=== PATIENT | male | born 1940 | race Caucasian/White ===

== ENCOUNTER 2020-05-18 20:33 | Inpatient (IN) | payer OTHER, MEDICAID ==
[~2020-05-18] VITALS: Ht 167.6 cm; Wt 599.6 kg
[2020-05-18] MEDS ORDERED: CEFTRIAXONE 1 G PREMIX 50 ML IV ONE (21:15)
[2020-05-18] MEDS ORDERED: SODIUM CHLORIDE 0.9% 1000ML BAG (SEPSIS BOLUS) IV ONE (21:15)
[2020-05-18 21:43] LABS: HEMOGLOBIN. 12.9 g/dL (14.0-18.0); MEAN CORPUSCULAR HEMOGLOBIN 29.1 pg (28.0-32.0); MEAN CORPUSCULAR VOLUME 83.1 fL (80.0-94.0); MEAN PLATELET VOLUME 7.7 fl (7.4-10.4); PLATELET 228 x1000/uL (130-400); RED BLOOD CELL COUNT 4.45 mill/uL (4.7-6.1); RED CELL DISTRIBUTION WIDTH 14.6 % (11.6-14.6)
[2020-05-18 21:48] LABS: CHLORIDE 103 mEq/L (98-107)
[2020-05-18 21:50] LABS: INR 1.1; PROTHROMBIN TIME 11.9 sec (9.6-11.0)
[2020-05-18 22:07] LABS: PLATELET ESTIMATE NORMAL
[2020-05-19] MEDS ORDERED: AZITHROMYCIN 500 MG in DEXT 5% WATER 250 ML IV SCH (00:30)
[2020-05-19] MEDS ORDERED: VANCOMYCIN 1 G PREMIX 200 ML IV SCH (00:30)
[2020-05-19] MEDS ORDERED: SODIUM CHLORIDE 0.9% 1,000 ML IV NR (02:00)
[2020-05-19 02:19] LABS: CLARITY URINE CLEAR (CLEAR); COLOR URINE YELLOW (YELLOW); KETONES URINE TRACE (NEGATIVE); LEUKOCYTE ESTERASE URINE NEGATIVE (NEGATIVE); NITRITE URINE NEGATIVE (NEGATIVE); OCCULT BLOOD URINE NEGATIVE (NEGATIVE); PH URINE 6.5 (4.5-8.0); PROTEIN URINE NEGATIVE (NEGATIVE); SPECIFIC GRAVITY URINE 1.005 (1.005-1.030)
[2020-05-19 04:00] VITALS: BP 174/99
[2020-05-19] MEDS ORDERED: GUAIFENESIN 200MG/10ML SUGAR FREE UDC PO PRN (04:00)
[2020-05-19] MEDS ORDERED: ONDANSETRON HCL 4MG/2ML INJ IV PRN (04:00)
[2020-05-19] MEDS ORDERED: DOCUSATE SODIUM 100MG CAPSULE PO PRN (04:00)
[2020-05-19] MEDS ORDERED: ACETAMINOPHEN 325MG TABLET PO PRN (04:00)
[2020-05-19] MEDS ORDERED: DEXT 5%/0.45% NACL KCL 10MEQ/L 1,000 ML IV SCH (04:30)
[2020-05-19] MEDS: CLONIDINE 0.1MG TABLET PO PRN (05:36)
[2020-05-19 05:40] VITALS: BP 174/91
[2020-05-19 08:00] VITALS: BP 153/87
[2020-05-19] MEDS: DEXT 5%/0.45% NACL KCL 10MEQ/L 1,000 ML IV SCH ×2 (08:48→20:24)
[2020-05-19] MEDS: ENOXAPARIN 40MG/0.4ML SYR SUBCUT SCH (08:59)
[2020-05-19] MEDS: AZITHROMYCIN 500 MG in DEXT 5% WATER 250 ML IV SCH (08:59)
[2020-05-19] MEDS ORDERED: POTASSIUM CHLORIDE 20MEQ/PACKET PO NR (10:30)
[2020-05-19 12:00] VITALS: BP 127/85
[2020-05-19 16:00] VITALS: BP 132/62
[2020-05-19] MEDS ORDERED: ALBUTEROL 6.7GM HFA INHALER ORI PRN (19:15)
[2020-05-19 20:00] VITALS: BP 138/88
[2020-05-19] MEDS: GUAIFENESIN 600MG ER TABLET PO SCH (20:06)
[2020-05-19] MEDS: CEFTRIAXONE 1,000 MG in DEXTROSE 5% WATER 50 ML IV SCH (20:06)
[2020-05-19] MEDS ORDERED: CEFTRIAXONE 1 G PREMIX 50 ML IV SCH (21:00)
[2020-05-20] VITALS: BP 141/75
[2020-05-20 04:00] VITALS: BP 162/83
[2020-05-20] MEDS: CLONIDINE 0.1MG TABLET PO PRN ×2 (04:59→21:30)
[2020-05-20 06:36] LABS: CHLORIDE 107 mEq/L (98-107)
[2020-05-20 06:50] LABS: LDL CHOLESTEROL 33 mg/dL (5-100)
[2020-05-20 06:51] LABS: HDL CHOLESTEROL 35 mg/dL (40-59)
[2020-05-20 07:01] LABS: HEMATOCRIT. 36.3 % (42.0-52.0); HEMOGLOBIN. 12.6 g/dL (14.0-18.0); MEAN CORPUSCULAR HEMOGLOBIN 29.1 pg (28.0-32.0); MEAN CORPUSCULAR VOLUME 83.9 fL (80.0-94.0); MEAN PLATELET VOLUME 8.1 fl (7.4-10.4); PLATELET 157 x1000/uL (130-400); RED BLOOD CELL COUNT 4.33 mill/uL (4.7-6.1); RED CELL DISTRIBUTION WIDTH 14.7 % (11.6-14.6)
[2020-05-20 08:00] VITALS: BP 133/76
[2020-05-20] MEDS: AZITHROMYCIN 500 MG in DEXT 5% WATER 250 ML IV SCH (08:24)
[2020-05-20] MEDS: GUAIFENESIN 600MG ER TABLET PO SCH ×2 (08:26→21:30)
[2020-05-20] MEDS: ENOXAPARIN 40MG/0.4ML SYR SUBCUT SCH (08:26)
[2020-05-20] MEDS ORDERED: AZITHROMYCIN 500 MG in DEXT 5% WATER 250 ML IV SCH (09:00)
[2020-05-20 09:38] LABS: PLATELET ESTIMATE NORMAL
[2020-05-20] MEDS: DEXT 5%/0.45% NACL KCL 10MEQ/L 1,000 ML IV SCH (10:57)
[2020-05-20 12:00] VITALS: BP 142/72
[2020-05-20 16:00] VITALS: BP 133/66
[2020-05-20] MEDS: ENOXAPARIN 60MG/0.6ML SYR SUBCUT SCH (19:13)
[2020-05-20 20:00] VITALS: BP 176/80
[2020-05-20] MEDS: CEFTRIAXONE 1,000 MG in DEXTROSE 5% WATER 50 ML IV SCH (21:30)
[2020-05-21] VITALS: BP 131/62
[2020-05-21] MEDS: DEXT 5%/0.45% NACL KCL 10MEQ/L 1,000 ML IV SCH (00:09)
[2020-05-21 04:00] VITALS: BP 114/51
[2020-05-21] MEDS: ENOXAPARIN 60MG/0.6ML SYR SUBCUT SCH (05:44)
[2020-05-21 08:00] VITALS: BP 138/47
[2020-05-21] MEDS: AZITHROMYCIN 500 MG in DEXT 5% WATER 250 ML IV SCH (09:09)
[2020-05-21] MEDS: GUAIFENESIN 600MG ER TABLET PO SCH (09:09)
[2020-05-21 09:44] VITALS: BP 138/47
[2020-05-21] MEDS ORDERED: DEXA4TAB69 PO (10:48)
[2020-05-21] MEDS ORDERED: ALBU90AE INH (10:49)
== END 2020-05-21 11:40 | disposition home or self-care (01) | DRG 871 ==
LOC: ER 20:33 → 7WST 05-19 01:24 → EDBEDREQSVC 05-19 01:28 → EDBEDREQTM 05-19 01:28 → EDBEDREQDT 05-19 01:28 → EDBEDREQ 05-19 01:28 → ENRESERV 05-19 04:13
PROVIDERS: ADMIT Hospitalist; ATTEND Hospitalist
DX: A41.89 Other specified sepsis (principal); U07.1 COVID-19; J96.00 Acute respiratory failure, unspecified whether with hypoxia or hypercapnia; G93.41 Metabolic encephalopathy; J12.89 Other viral pneumonia; E44.0 Moderate protein-calorie malnutrition; Z68.45 Body mass index [BMI] 70 or greater, adult; E87.6 Hypokalemia; I10 Essential (primary) hypertension; Z85.46 Personal history of malignant neoplasm of prostate
CPT/HCPCS: 36415; 71045; 71250; 80053; 80061; 81003; 83605; 84145; 84484; 85025; 87077; 87186; 87635; 93005; 93970; 99291; J0456; J0696; J1650; J3370; J7030; J7060